=== PATIENT | female | born 1960 | race Caucasian/White ===

== ENCOUNTER 2019-05-14 09:38 | Observation (INO) | payer OTHER ==
[~2019-05-14] VITALS: Ht 160 cm; Wt 90.7 kg
[2019-05-14] VITALS (10 sets, daily range): BP systolic 114–149; BP diastolic 62–78
--- NOTE | ~2019-05-14 | O ---
[facility] [place] [address] OPERATIVE REPORT Name: EMRE NESS Room #: 403-P [facility] M.R.#: [id number] Admission: 05/14/19 Attend Phys: Sinan Jackson MD Discharge: Date of : 56 Report #: [id number] THIS REPORT FOR: cc: Giancarlo Mccord MD,Giancarlo Jackson,Sinan Llanos MD ~ CC: Giancarlo Jackson DATE OF SERVICE: 05/14/2019 PREOPERATIVE DIAGNOSES: Cholecystitis with cholelithiasis. Syncope with old event monitor present. POSTOPERATIVE DIAGNOSES: Cholecystitis with cholelithiasis. Syncope with old event monitor present. PROCEDURES PERFORMED: 1. Laparoscopic cholecystectomy with cholangiogram. 2. Removal of LINQ event monitor. SURGEON: Sinan Jackson MD ANESTHESIA: General anesthesia. COMPLICATIONS: None. ESTIMATED BLOOD LOSS: 5 mL. PROCEDURE NOTE: Abdomen was prepped and draped in sterile fashion. IV antibiotic was administered. Timeout was performed. A cutdown incision was made in the right upper quadrant, little bit above the umbilicus. The patient has had prior surgery including hernia repair. This is to avoid previous scar. A 2-cm incision was made after anesthetizing the skin. Anterior fascia was identified. Anterior fascia was then opened. A 0 Vicryl suture placed on the fascia for retraction. Muscle was spread. The posterior fascia was then identified. Posterior fascia, peritoneum was opened without difficulty. The 0 Vicryl suture placed on the posterior fascia. Under visualization, a balloon trocar was placed. An 11 mm balloon trocar was placed. Insufflation of CO2 was performed. A scope was placed. Under visualization, the inferior aspect of the abdomen had adhesions to it. I can see rounded on the right lateral side. The bowel appears to be not adhesed. Two 5-mm trocars were placed in the right upper quadrant and a 5-mm trocar was placed in right epigastrium. A 5-mm scope was used through the 5-mm trocar and looking downward, the adhesion just below where I entered with the cutdown incision. I can see air behind a thin veil of fat. I did not decide to take that down. There are too much adhesions present. [facility] [address] [place] [address] OPERATIVE REPORT Name: EMRE NESS Room #: [facility] Tanisha Wiggins#: [id number] Admission: 05/14/19 Attend Phys: Sinan Jackson MD Discharge: Date of : 56 Report #: [id number] I think I can see the edge of the mesh material which looks fine. A 10-mm scope was then used. The patient was placed in reverse Trendelenburg position, right side tilted up. Gallbladder was lifted. The gallbladder did have some adhesions along the inferior aspect of it. These adhesions were taken down. The peritoneum of the cystic duct was isolated easily. The cystic artery was also visualized. The two structures in the triangle of Calot was visualized with a critical view. Clip was placed in junction of cystic duct to the gallbladder. Opening was made in the cystic duct. Cholangiogram catheter was inserted. Fluoroscopic cholangiogram was obtained. Common bile duct filled out well. I did not see any filling defect. The catheter was identified in the cystic duct, no harm to the common duct. The dye flowed readily into the duodenum. The catheter was then removed. The proximal cystic duct was then clipped x 2 and then divided. The artery was identified just adjacent to this and had already been freed. This was clipped x 2 proximally, 1 distally and then divided. There was a small posterior branch that was clipped x 1. Gallbladder was free from the liver bed without difficulty. The gallbladder was then retrieved through the balloon trocar site. The gallbladder came out easily. Gallbladder was opened off the field. There are two 1-cm sized smooth stone in the gallbladder. No other lesions identified in the gallbladder. Liver bed was checked, hemostasis excellent. CO2 trocars removed. CO2 was evacuated as much as possible. The fascia defect at the cutdown site was closed with 0 PDS [id number] x 2. The anterior layer was then also closed with 0 PDS [id number] x 2. Skin was closed with 5-0 PDS. Steri-Strips applied. Band-Aids applied. The chest was then prepped and toweled off in sterile fashion. Local anesthetic was placed. The previous incision, which is about 1 cm in length was opened. The length was found adjacent to this and this was free from the scar tissue and removed without difficulty. Irrigation was performed. The skin was then closed with 5-0 PDS. Steri-Strip, Band-Aids applied. The patient tolerated the procedure well and was taken to recovery room. By: 1319 1428 Sinan Jackson MD /neelam
[~2019-05-14 09:38] MED LIST: CALCIUM 500 +1 EAC5 PO; CELEXA 20 MG TA20 M1 PO; CLONAZEPAM 0.50.5 M1 PO; HYDROCHLOROTHIA25 M1 PO; LEVOTHYROXIN0.125 M1 PO; LEVOTHYROXINE 0.15MG PO; LEVOXYL150 MCG PO; LISINOPRIL20 MG PO; MAGNESIUM CITR100 MG PO; MULTI VITAMIN1 EACH PO; POTASSIUM20 PO; PRESERVISION A1 EACH PO; PROTONIX40 MG PO; ROSUVASTATIN CA20 MG PO; ZESTRIL10 MG PO; ZOLOFT25 MG PO
--- NOTE | 2019-05-14 10:35 | H ---
[facility] [place] [address] HISTORY AND PHYSICAL Name: EMRE NESS Room #: 150-4 [facility] M.R.#: [id number] Admission: 05/14/19 Attend Phys: Sinan Jackson MD Discharge: Date of : 56 Report #: [id number] THIS REPORT FOR: cc: Giancarlo Mccord MD,Giancarlo Jackson,Sinan Llanos MD ~ CC: Albert Jackson PREOPERATIVE DIAGNOSIS: Cholecystitis with cholelithiasis. HISTORY OF PRESENT ILLNESS: The patient is a 58-year-old who is here for treatment of abdominal pain. The patient had a couple of episodes of pain associated with nausea and gassiness. The pain is located in the epigastrium and right upper quadrant. The patient has quite a bit of issue now with persistent nausea. She has had some bowel changes with different color to her bowel. Back in 2011, she had similar pains. She is complaining of gagging at that time. She has had issues with eating in the past. The patient has prior surgical history with hernia repairs. The patient was evaluated, had an ultrasound. She does have multiple gallstones. The gallbladder wall was normal. No pericholecystic fluid. Common bile duct measured 4.7 mm. Because of the symptomatic nature, the patient is recommended to undergo laparoscopic cholecystectomy. PAST SURGICAL HISTORY: She has had 3 C-sections and she had a hernia repair in 1994. I did an incisional hernia repair laparoscopic in 2008. PAST MEDICAL HISTORY: The patient had an episode of possible TIA and some abnormality on. She had LINQ event monitor placed back in 05/2011. This is no longer functioning and she will have that removed. The patient denies any heart disease. History of high blood pressure. No diabetes. Elevated cholesterol. The patient denies any lung disease. No liver disease, no kidney disease, no bleeding disorder. No history of blood clot. ALLERGIES: The patient does not have any allergies. MEDICATIONS: Synthroid 150 mcg daily, rosuvastatin 20 mg, vitamin one a day, hydrochlorothiazide 25 mg, lisinopril 20 mg, magnesium citrate. FAMILY HISTORY: There is heart disease in the family. Brother with pulmonary hypertension. SOCIAL HISTORY: The patient works in a preschool. She does not smoke, rarely drinks. REVIEW OF SYSTEMS: No headache, shortness of breath, chest pain, palpitation. [facility] [address] [place] [address] HISTORY AND PHYSICAL Name: EMRE NESS Room #: 150-4 [facility] M.R.#: [id number] Admission: 05/14/19 Attend Phys: Sinan Jackson MD Discharge: Date of : 56 Report #: [id number] No numbness or weakness. No headaches. PHYSICAL EXAMINATION: GENERAL: The patient is a well-nourished female in no acute distress. HEENT: Pupils react to light. Extraocular muscles are intact. Sclerae are nonicteric. NECK: Soft and supple, no masses, no JVD. LUNGS: Clear to auscultation. HEART: Regular rate and rhythm. No murmur or gallop. The patient has a small scar in the left chest for LINQ procedure. ABDOMEN: Does show a scar in the lower part of the abdomen. There is laparoscopic port site for the incisional hernia repair. No mass. She is tender in the right upper quadrant. No ascites. EXTREMITIES: No cyanosis, clubbing, edema. Motor or sensory exam normal. IMPRESSION: The patient is a 66-year-old with abdominal pain, located in the epigastric right upper quadrant. Has had issues with certain foods intolerance. The patient recently has had more painful episodes. Probably her issues started back in 2011. She is recommended to undergo laparoscopic cholecystectomy. Procedure discussed. Risk of bleeding, infection, common bile duct injury were discussed. Bile leak was discussed. The patient understands the procedure, risks involved and wishes to proceed. <ELECTRONICALLY SIGNED> By: Sinan Jackson MD 05/14/19 1035 2221 2248 Sinan Jackson MD /nt
--- NOTE | 2019-05-14 17:53 | NUR ---
Pt up to unit from recovery approx 1530. A&ox4. Minimal pain. Dressings c/d/i. Tolerates diet well. Vital signs stable. Family at bedside. IVF infusing. Observation status. Will move to [facility]. Report given to RN. Pt agreable.
--- NOTE | 2019-05-14 19:21 | NUR ---
PATIENT TRANSFERRED FROM [address] [place] [address], PATIENT ALERT AND ORIENTED X 4. REPORT FROM GRACE/RN. PATIENT OBSERVATION, POSSIBLE DISCHARGE TOMORROW. LAP CLEMENTINE DONE TODAY WITH [address] UP WITH SBA RIGHT AC IV WITH D51/2 NS WITH 20 KCL AT 80CC/HR. NO C/O PAIN UPON ARRIVAL TO THE UNIT. WILL CONTINUE TO MONITOR.
[2019-05-15 00:11] VITALS: BP 91/54
[2019-05-15 01:21] VITALS: BP 121/73
--- NOTE | 2019-05-15 03:55 | NUR ---
PATIENT ALERT AND ORIENTED X4. UP ADLIB IN ROOM. AT BEDSIDE IN EARLY EVENING. THIS NURSE INSTRUCTED THE THAT VISITING HOURS WERE OVER AT 1830 DUE TO THE NEW RULES BECAUSE OF THE PANDEMIC. HOWEVER, HE WAS NONCOMPLIANT X3. PATIENT DENIES PAIN. BANDAIDS X4 TO ABDOMEN DRY AND INTACT. NO N/V. IVF INFUSING W/O COMPLICATION. PATIENT C/O IRRITATION TO HER THROAT AND THIS NURSE CALLED AND RECEIVED AN ORDER FOR LOZENGES. PATIENT RESTING QUIETLY AT TIME OF NOTE. WILL MONITOR.
[2019-05-15 08:29] VITALS: BP 126/78
[2019-05-15] MEDS ORDERED: TYLENOL EXTRA500 MG PO (13:02)
[2019-05-15] MEDS ORDERED: IBU600 MG PO (13:02)
[2019-05-15 13:23] VITALS: BP 126/78
--- NOTE | 2019-05-15 15:22 | NUR ---
ASSUMED CARE OF PATIENT AT 0715, PATIENT ALERT AND ORIENTED X 4. UP AD HAYLEY IN ROOM. PATIENT DENIES PAIN, PATIENT HAS 3 LAP SITES WITH BANDAIDS IN PLACE. PATIENT HAD RIGHT AC IV IN PLACE, D51/2 NS AT 80CC/HR. PATIENT IS OBSERVATION, THIS RN NOTIFIED DR HINKLE OF DISCHARGE, HE CAME AROUND 1300, DISCHARGE TO HOME, WITH DISCHARGE INSTRUCTIONS. THIS RN REMOVED RIGHT AC IV AND WENT OVER ALL DISCHARGE PAPERWORK WITH THE PATIENT AND SENT ALL PERSONAL BELONGINGS SENT WITH THE PATIENT.
--- NOTE | 2019-05-17 08:01 | EKG ---
[facility] [place] [address] ELECTROCARDIOGRAM REPORT Name: EMRE NESS Room #: 403-[facility] M.R.#: [id number] Admission: 05/14/19 Attend Phys: Sinan Jackson MD Discharge: 05/15/19 Date of : 56 Report #: [id number] THIS REPORT FOR: cc: Giancarlo Mccord MD, Christopher B. MD Lundgren,Ramone Nelson MD [facility] ~ THIS REPORT FOR: //name// [facility] Test Date: 2019-05-14 Test Time: 10:22:42 Pat Name: EMRE NESS Department: Room: 403 Gender: F Pediatrician: geoff : 1960 Requested By: Sinan Jackson Order Number: [id number] MD: Ramone Esparza Measurements Intervals [place] Rate: 65 P: 63 NV: 186 QRS: -54 QRSD: 110 T: 29 QT: 437 QTc: 455 Interpretive Statements Sinus rhythm LAD, consider left anterior fascicular block Abnormal R-wave progression, late transition Compared to ECG 06/22/2015 18:07:22 No significant change was found Electronically Signed On 05-17-2019 8:00:36 CDT by Ramone Esparza [email or web address] <ELECTRONICALLY SIGNED> By: Ramone Esparza MD, FAC 05/17/19 0800 1022 1022 Ramone Esparza MD, FAC /EPI
--- NOTE | 2019-05-17 17:07 | PATH ---
[facility] [place] [address] [place] [address] PATHOLOGY RPT PROCEDURE Name: EMRE NATHAN Room #: 403-P SEBLE Wiggins#: [id number] Admission: 05/14/19 Date of : 56 Discharge: 05/15/19 Report #: [id number] Path Case #: [id number] [facility] Accession Number: [id number] . 01 Material submitted: . gallbladder - GALLBLADDER . 01 Clinical history: . Cholecystitis, unspecified . 02 Diagnosis: Gallbladder, cholecystectomy: - Mild chronic cholecystitis. (IUV:consultant technology; 05/17/2019) R 05/17/2019 1307 Local . 02 Electronically signed: . Siri Franco MD, Pathologist NPI- [id number] . 01 Gross description: . The specimen is received in formalin, labeled "Emre Nathan, gallbladder". Received is a previously opened gallbladder measuring 7.0 x 2.7 x 1.3 cm in greatest dimensions displaying a light maldonado to adipose covered serosal surface. Opening the specimen reveals a velvety, pink-maldonado mucosa with a gallbladder wall thickness of 0.1 cm. Calculi are not present, and no masses or lesions are noted grossly. Garbage Truck Driver sections, to include the proximal margin, are submitted in cassette A1. (CAA; 05/14/2019) QAC/QAC 05/14/2019 1909 Local . 02 Pathologist provided ICD-10: K81.1 . 02 CPT . 607607 Specimen Comment: A courtesy copy of this report has been sent to [phone], [phone] Specimen Comment: [phone] Specimen Comment: Report sent to / DR ALLAN Performed at: [address] [id number] MD Tremaine Lorenz MD Phone: [phone] Performed at: [address] [id number] [address] [address] PATHOLOGY RPT PROCEDURE Name: EMRE NATHAN Room #: 403-P SE[facility] Wiggins#: [id number] Admission: 05/14/19 Date of : 56 Discharge: 05/15/19 Report #: [id number] Path Case #: [id number] MD Siri Franco MD Phone: [phone]
== END 2019-05-15 13:40 | disposition home or self-care (01) ==
LOC: OR 09:38 → TBA 09:39 → OR 10:12 → 4S 14:54 → 4N 18:31
PROVIDERS: ADMIT Surgery
DX: K80.10 Calculus of gallbladder with chronic cholecystitis without obstruction (principal); E78.00 Pure hypercholesterolemia, unspecified; R55 Syncope and collapse; Z98.890 Other specified postprocedural states
CPT/HCPCS: 50010; 50101; 50249; 50411; 50555; 50558; 50886; 51489; 53310; 55245; 56462; 56525; 56526; 62110; 62900; 70005

== ENCOUNTER → 2019-07-14 | Outpatient (CLI) | payer OTHER ==
[~2019-07-14] MED LIST changes: +IBU600 MG PO; +TYLENOL EXTRA500 MG PO
== END ==
LOC: SJCVCIMAG 12:07
DX: R94.31 Abnormal electrocardiogram [ECG] [EKG] (principal); I45.2 Bifascicular block; I11.0 Hypertensive heart disease with heart failure; I50.32 Chronic diastolic (congestive) heart failure; R06.02 Shortness of breath; E78.5 Hyperlipidemia, unspecified; G47.33 Obstructive sleep apnea (adult) (pediatric); G45.9 Transient cerebral ischemic attack, unspecified; Z86.73 Personal history of transient ischemic attack (TIA), and cerebral infarction without residual deficits

== ENCOUNTER → 2019-07-16 | Outpatient (CLI) | payer OTHER ==
[2019-07-16 15:28] LABS: CREATININE 1.2 mg/dL (0.6-1.0)
== END ==
LOC: CAT 14:29
PROVIDERS: Internal Medicine
DX: J84.10 Pulmonary fibrosis, unspecified (principal); J98.4 Other disorders of lung; M89.38 Hypertrophy of bone, other site